=== PATIENT | male | born 1960 | race Caucasian/White ===

== ENCOUNTER 2016-10-07 01:40 | Emergency (ER) | payer OTHER ==
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
[2016-10-07 02:28] VITALS: BP 107/64; PULSE 70; TEMP 98; BMI 23.6
== END 2016-10-07 02:46 | disposition home or self-care (01) ==
LOC: JER 01:40
DX: J70.5 Respiratory conditions due to smoke inhalation (principal); M54.5 Low back pain; X02.1XXA Exposure to smoke in controlled fire in building or structure, initial encounter; Y93.89 Activity, other specified; Y92.098 Other place in other non-institutional residence as the place of occurrence of the external cause; Y99.0 Civilian activity done for income or pay
CPT/HCPCS: 99281-25

== ENCOUNTER 2019-03-07 00:07 | Emergency (ER) | payer OTHER ==
[2019-03-07 00:52] VITALS: BP 139/84; PULSE 73; TEMP 98.3; BMI 24.3
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
== END 2019-03-07 01:48 | disposition home or self-care (01) ==
LOC: JER 00:07
DX: T67.5XXA Heat exhaustion, unspecified, initial encounter (principal); J70.5 Respiratory conditions due to smoke inhalation; X00.1XXA Exposure to smoke in uncontrolled fire in building or structure, initial encounter; X00.8XXA Other exposure to uncontrolled fire in building or structure, initial encounter; Y93.89 Activity, other specified; Y92.018 Other place in single-family (private) house as the place of occurrence of the external cause; Y99.0 Civilian activity done for income or pay
CPT/HCPCS: 99283-25